=== PATIENT | female | born 1980 | race Hispanic/Latino ===

== ENCOUNTER 2020-02-20 05:30 | Observation (INO) | payer OTHER ==
[2020-02-19 12:23] LABS: BASOPHILS % (AUTO) 0.9 % (0.0-5.0); EOSINOPHILS % (AUTO) 2.4 % (0.0-8.0); HEMATOCRIT 33.5 % (36-48); LYMPHOCYTES % (AUTO) 29.5 % (21.0-51.0); MEAN CORPUSCULAR HEMOGLOBIN 26.3 pg (27.0-33.0); MEAN CORPUSCULAR HGB CONC 30.7 g/dL (32.0-36.0); MEAN CORPUSCULAR VOLUME 85.5 fL (79-99); MONOCYTES % (AUTO) 6.2 % (3.0-13.0); NEUTROPHILS % (AUTO) 60.6 % (40.0-77.0); PLATELET COUNT (AUTO) 265 K/uL (130-400); RED BLOOD CELL COUNT(AUTO) 3.92 MIL/uL (4.00-5.50); RED CELL DISTRIBUTION WIDTH 17.2 % (11.0-15.5)
[2020-02-20] VITALS (23 sets, daily range): BP systolic 106–163; BP diastolic 52–89
[~2020-02-20] VITALS: Ht 154.9 cm; Wt 87.1 kg
[~2020-02-20 05:30] MED LIST: ALPR2TAB2 PO; ESCI10TA PO; FERR-82 PO; LACTATED RINGERS 1000ML 1,000 ML IV SCH
--- NOTE | 2020-02-20 05:45 | NUR ---
PREOP PT ARRIVED IN NO DISTRESS. PT HERE FOR VAG HYST, D/C, FROZEN SECTION BY DR ASHER. PT ORIENTED TO ROOM AND CALL LIGHT. WILL CONTINUE TO MONITOR PT
[2020-02-20] MEDS ORDERED: SUCCINYLCHOLINE CHLORIDE 20 MG/ML 10 ML VIAL ONE (06:33)
[2020-02-20] MEDS ORDERED: DEXAMETHASONE SOD PHOSPHATE 10MG/ML 1ML VIAL ONE (06:33)
[2020-02-20] MEDS ORDERED: LIDOCAINE PF 2% 5ML ABBOJECT ONE (06:33)
[2020-02-20] MEDS ORDERED: PROPOFOL 10 MG/ML 20ML VIAL IV ONE (06:34)
[2020-02-20] MEDS ORDERED: GLYCOPYRROLATE 1 MG/5 ML SYRINGE ONE (06:34)
[2020-02-20] MEDS ORDERED: MIDAZOLAM HCL 1 MG/ML 2ML VIAL ONE ×2 (06:34→06:53)
[2020-02-20] MEDS ORDERED: ONDANSETRON HCL 4 MG/2 ML VIAL ONE (06:34)
[2020-02-20] MEDS ORDERED: FENTANYL CITRATE PF 50 MCG/1 ML 2ML VIAL ONE ×4 (06:35→08:25)
[2020-02-20] MEDS ORDERED: NEOSTIGMINE 5MG/5ML SYR IV ONE (06:35)
[2020-02-20] MEDS ORDERED: ROCURONIUM 10MG/1ML SYR 10 MG/ML ML ONE (06:35)
[2020-02-20] MEDS ORDERED: EPHEDRINE SULFATE 50 MG/ML AMPULE ONE (07:13)
[2020-02-20] MEDS ORDERED: CEFAZOLIN SODIUM 1 GM VIAL IVP ONE (08:00)
[2020-02-20] MEDS ORDERED: MEPERIDINE-PF 25 MG/ML SYG ONE ×3 (08:33→09:14)
[2020-02-20] MEDS ORDERED: KETOROLAC TROMETHAMINE 30MG/ML ONE (09:24)
[2020-02-20] MEDS ORDERED: IBUPROFEN 600 MG TABLET PO PRN (10:00)
[2020-02-20] MEDS ORDERED: PROMETHAZINE HCL 25 MG/ML 1ML AMPULE IM PRN (10:00)
[2020-02-20] MEDS ORDERED: ONDANSETRON HCL 4 MG/2 ML VIAL IVP PRN (10:00)
[2020-02-20] MEDS ORDERED: BISACODYL 10 MG SUPP.RECT RC PRN (10:00)
[2020-02-20] MEDS: ACETAMINOPHEN-CODEINE 300/30MG TAB PO PRN ×2 (10:41→20:16)
[2020-02-20] MEDS: PROMETHAZINE HCL 25 MG/ML 1ML AMPULE IM PRN ×2 (12:26→15:34)
[2020-02-20] MEDS: MEPERIDINE-PF 75 MG/ML SYG IM PRN ×2 (12:28→15:35)
[2020-02-20] MEDS: DEXTROSE 5 %-0.45 % NACL 1,000 ML IV PRN (17:53)
[2020-02-20] MEDS: DOCUSATE SODIUM 100 MG CAP PO PRN (20:16)
[2020-02-20] MEDS: SIMETHICONE 80 MG TAB.CHEW PO PRN (20:16)
[2020-02-21] MEDS: PROMETHAZINE HCL 25 MG/ML 1ML AMPULE IM PRN (00:09)
[2020-02-21] MEDS: MEPERIDINE-PF 75 MG/ML SYG IM PRN (00:10)
[2020-02-21] MEDS: DEXTROSE 5 %-0.45 % NACL 1,000 ML IV PRN (01:59)
[2020-02-21 03:54] VITALS: BP 109/54
[2020-02-21 06:34] LABS: HEMATOCRIT 26.2 % (36-48); MEAN CORPUSCULAR HEMOGLOBIN 25.9 pg (27.0-33.0); MEAN CORPUSCULAR HGB CONC 30.2 g/dL (32.0-36.0); MEAN CORPUSCULAR VOLUME 85.9 fL (79-99); RED BLOOD CELL COUNT(AUTO) 3.05 MIL/uL (4.00-5.50); RED CELL DISTRIBUTION WIDTH 17.2 % (11.0-15.5); WHITE BLOOD COUNT (AUTO) 15.4 K/uL (4.8-10.8)
[2020-02-21 07:36] VITALS: BP 119/67
[2020-02-21] MEDS ORDERED: HYDROCODONE/ACETAMINOPHEN 5/325 MG TAB PO PRN (08:00)
[2020-02-21] MEDS: DOCUSATE SODIUM 100 MG CAP PO PRN (08:05)
[2020-02-21] MEDS: SIMETHICONE 80 MG TAB.CHEW PO PRN ×2 (08:05→13:30)
[2020-02-21] MEDS: ACETAMINOPHEN-CODEINE 300/30MG TAB PO PRN (08:06)
--- NOTE | 2020-02-21 08:10 | NUR ---
DR. ASHER ROUNDING ON PATIENT. DISCHARGE POC DISCUSSED. QUESTIONS INVITED AND ANSWERED PATIENT VOICED UNDERSTANDING ON ALL INSTRUCTIONS.
[2020-02-21] MEDS ORDERED: IBUPROFEN 600 MG TABLET PO PRN (13:30)
--- NOTE | 2020-02-21 14:30 | NUR ---
PATIENT LEFT UNIT VIA WHEELCHAIR WITH BELONGINGS IN HAND. PERSONAL VEHICLE USED FOR TRANSPORTATION. NO COMPLAINTS OR CONCERNS ADDRESSED FROM PATIENT ON DISCHARGE.
== END 2020-02-21 14:30 | disposition home or self-care (01) ==
LOC: DAH 05:30 → WSH 05:31 → DAH 05:31 → WSH 09:55
PROVIDERS: ADMIT Obstetrics & Gynecology; ATTEND Obstetrics & Gynecology
DX: N92.1 Excessive and frequent menstruation with irregular cycle (principal); Z20.828 Contact with and (suspected) exposure to other viral communicable diseases; D64.9 Anemia, unspecified; N81.4 Uterovaginal prolapse, unspecified; N83.8 Other noninflammatory disorders of ovary, fallopian tube and broad ligament
CPT/HCPCS: 36415 ×2; 58263; 84703; 85025; 85027; 86850; 86900; 86901; A4215; A4221; A4222; A4223; A4351; A4510; A4600; A4606; A4663; A4930; C9803; G0378 ×19; J0330; J1100; J1885; J2001; J2175 ×6; J2250 ×2; J2405; J2550 ×3; J2704; J2710; J3010 ×4; J3490 ×2; J7030; J7120 ×2; U0003